=== PATIENT | male | born 1995 ===

== ENCOUNTER 2017-04-20 14:11 | Emergency (ER) | payer OTHER ==
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
[2017-04-20] MEDS ORDERED: IBUPROFEN 600 MG TABLET (FP) PO ONE ×2 (14:23→14:32)
[2017-04-20 14:27] VITALS: BP 124/82; PULSE 84; TEMP 98.2; BMI 31.3
== END 2017-04-20 15:45 | disposition home or self-care (01) ==
LOC: FER 14:11
DX: M79.1 Myalgia (principal); V43.52XA Car driver injured in collision with other type car in traffic accident, initial encounter; Y93.89 Activity, other specified; Y92.410 Unspecified street and highway as the place of occurrence of the external cause
CPT/HCPCS: 71101-TC; 72100-TC; 99281-25